=== PATIENT | female | born 1990 | race Caucasian/White ===

== ENCOUNTER 2024-07-18 10:22 | Inpatient (IN) | payer MEDICAID ==
[2024-07-18] MEDS ORDERED: Sodium Chloride 0.9% 20 ML SDV IV PRN ×2 (10:32→12:00)
[2024-07-18] MEDS ORDERED: Lidocaine 1% 50 ML MDV INJECT PRN ×2 (10:32→12:00)
[2024-07-18] MEDS ORDERED: Sodium Chloride 0.9% 2.5 ML Syringe FLUSH PRN ×2 (10:32→12:00)
[2024-07-18] MEDS ORDERED: Methylergonovine 0.2 MG/1 ML Amp IM PRN ×2 (10:32→12:00)
[2024-07-18] MEDS ORDERED: Butorphanol 2 MG/ML SDV IVPUSH PRN ×2 (10:32→12:00)
[2024-07-18] MEDS ORDERED: Water For Irrigation,Sterile 1,000 ML Container IRR PRN ×2 (10:32→12:00)
[2024-07-18] MEDS ORDERED: Ondansetron 4 MG/2 ML SDV IVPUSH PRN ×2 (10:32→12:00)
[2024-07-18] MEDS ORDERED: Terbutaline 1 MG/ML SDV SUBCUT PRN ×2 (10:32→12:00)
[2024-07-18] MEDS ORDERED: Carboprost Tromethamine 250 MCG/1 mL Vial IM PRN ×2 (10:32→12:00)
[2024-07-18] MEDS ORDERED: Sodium Chloride 0.9% 10 ML Syringe FLUSH PRN ×2 (10:32→12:00)
[2024-07-18] MEDS ORDERED: Misoprostol 200 MCG Tab PO PRN (10:32)
[2024-07-18] MEDS ORDERED: Tranexamic Acid IN NACL,ISO-OS 1,000 MG in Premix Bag 1 BAG IV PRN (10:32)
[2024-07-18] MEDS ORDERED: Oxytocin/0.9 % Sodium Chloride 30 UNIT/500 ML BAG IV SCH (10:45)
[2024-07-18] MEDS: Lactated Ringers 1,000 ML IV SCH ×2 (10:50)
[2024-07-18] MEDS: Oxytocin/0.9 % Sodium Chloride 30 UNIT/500 ML BAG IV SCH ×3 (11:05→17:45)
[2024-07-18 11:07] LABS: HEMATOCRIT 32.6 % (37.0-47.0); HEMOGLOBIN 10.3 g/dL (12.0-16.0); MEAN CORPUSCULAR HEMOGLOBIN 23.4 pg (28.0-32.0); MEAN CORPUSCULAR HGB CONC 31.6 g/dL (32.0-36.0); MEAN CORPUSCULAR VOLUME 73.9 fL (83.0-99.0); MEAN PLATELET VOLUME 10.7 fL (9.4-12.3); PLATELET COUNT,PLT 237 K/uL (150-400); RED BLOOD CELL COUNT 4.41 M/uL (4.10-5.30); WHITE BLOOD CELL COUNT,WBC 8.65 K/uL (3.9-11.3)
[2024-07-18 12:10] LABS: A/G RATIO 0.7 (0.9-1.6); ALBUMIN 2.5 g/dL (3.4-5.0); BILIRUBIN TOTAL 0.3 mg/dL (0.2-1.0); CALCIUM 8.6 mg/dL (8.5-10.1); CARBON DIOXIDE,CO2 23.6 mmol/L (21.0-32.0); CREATININE 0.8 mg/dL (0.6-1.0); EST CRCL DRUG DOSING (CG) 80.42 mL/min; POTASSIUM,K 4.1 mmol/L (3.5-5.1); PROTEIN TOTAL,TP 6.2 g/dL (6.4-8.2)
[2024-07-18] MEDS: Ropivacaine HCl/PF 400 MG in Premix Bag 1 BAG EPIDUR SCH (12:45)
[2024-07-18] MEDS ORDERED: Phenylephrine HCl In 0.9% NaCl 1 MG/10 ML Syringe IVPUSH PRN (12:53)
[2024-07-18] MEDS ORDERED: ePHEDrine 50 MG/ML SDV IVPUSH PRN (12:53)
[2024-07-18] MEDS ORDERED: Bupivacaine 0.5% 10 ML SDV INJECT ONE (12:54)
[2024-07-18] MEDS ORDERED: ePHEDrine 50 MG/ML SDV IM PRN (12:54)
[2024-07-18] MEDS ORDERED: dexmedeTOMIDine HCl 200 MCG/2 ML SDV EPIDUR SCH (13:00)
[2024-07-18] MEDS: Bupivacaine 0.5% 10 ML SDV ONE (13:09)
[2024-07-18] MEDS: Phenylephrine HCl In 0.9% NaCl 1 MG/10 ML Syringe ONE (13:10)
[2024-07-18] MEDS: Ropivacaine HCl/PF 200 ML ONE (13:10)
[2024-07-18] MEDS ORDERED: Bisacodyl 10 MG Supp RECTAL PRN (15:43)
[2024-07-18] MEDS ORDERED: Sennosides 8.6 MG Tab PO PRN (15:43)
[2024-07-18 15:59] LABS: PH,UMBILICAL ARTERIAL 7.259 (7.18-7.38); PH,UMBILICAL VENOUS 7.304 (7.25-7.45)
[2024-07-18] MEDS: Witch Hazel Medicated Pads 40/Jar TOP PRN (17:18)
[2024-07-18] MEDS: Ibuprofen 800 MG Tab PO PRN (17:18)
[2024-07-18] MEDS: Benzocaine/Menthol 20%-0.5% Spray 78 GM Cannister TOP PRN (17:18)
[2024-07-18] MEDS: Lanolin 100% Cream 7 GM Tube TOP PRN (17:19)
[2024-07-18] MEDS: Docusate Sodium 100 MG Cap PO PRN (17:19)
[2024-07-18] MEDS: Tranexamic Acid IN NACL,ISO-OS 1,000 MG in Premix Bag 1 BAG IV PRN (17:35)
[2024-07-18] MEDS: Misoprostol 200 MCG Tab PO PRN (17:38)
[2024-07-18] MEDS: Oxytocin/0.9 % Sodium Chloride 30 UNIT/500 ML BAG ONE (17:51)
[2024-07-19] MEDS: Acetaminophen 500 MG Tab PO PRN (02:04)
[2024-07-19 06:26] LABS: BASOPHILS ABSOLUTE AUTO 0.05 K/uL (0.00-0.20); BASOPHILS PERCENT AUTO 0.5 % (0.0-1.0); EOSINOPHILS ABSOLUTE AUTO 0.12 K/uL (0.00-0.45); EOSINOPHILS PERCENT AUTO 1.2 % (0.0-6.0); HEMATOCRIT 25.9 % (37.0-47.0); HEMOGLOBIN 8.2 g/dL (12.0-16.0); IMMATURE GRAN ABSOLUTE AUTO 0.04 K/uL (0.00-0.05); IMMATURE GRAN PERCENT AUTO 0.4 % (0.0-0.4); LYMPHOCYTES ABSOLUTE AUTO 2.37 K/uL (1.00-4.80); LYMPHOCYTES PERCENT AUTO 23.4 % (24.0-44.0); MEAN CORPUSCULAR HEMOGLOBIN 23.6 pg (28.0-32.0); MEAN CORPUSCULAR HGB CONC 31.7 g/dL (32.0-36.0); MEAN CORPUSCULAR VOLUME 74.6 fL (83.0-99.0); MEAN PLATELET VOLUME 10.9 fL (9.4-12.3); MONOCYTES ABSOLUTE AUTO 0.61 K/uL (0.00-0.80); NEUTROPHILS ABSOLUTE AUTO 6.92 K/uL (1.80-7.70); NEUTROPHILS PERCENT AUTO 68.5 % (41.0-71.0); PLATELET COUNT,PLT 197 K/uL (150-400); RED BLOOD CELL COUNT 3.47 M/uL (4.10-5.30); WHITE BLOOD CELL COUNT,WBC 10.11 K/uL (3.9-11.3)
[2024-07-19] MEDS: Ferrous Sulfate 325 MG Tab PO SCH (10:38)
[2024-07-20] MEDS ORDERED: Ferrous Sulfate 325 MG Tab PO SCH (09:00)
[2024-07-20] MEDS ORDERED: Iron Polysaccharides Complex 150 MG Cap PO SCH (09:00)
== END 2024-07-19 17:30 | disposition home or self-care (01) | DRG 807 ==
LOC: MW.OB 10:22 → UNDOADMOB 10:22 → MW.OB 10:32 → OBSVTOIN 15:15 → MW.OB 21:46
PROVIDERS: ADMIT Obstetrics & Gynecology; ATTEND Obstetrics & Gynecology
PROC: 10E0XZZ Delivery of Products of Conception, External Approach (ICD-10-PCS; principal; 2024-07-18)
PROC: 3E033VJ Introduction of Other Hormone into Peripheral Vein, Percutaneous Approach (ICD-10-PCS; 2024-07-18)
DX: O99.214 Obesity complicating childbirth (principal); Z37.0 Single live birth; Z3A.38 38 weeks gestation of pregnancy; O99.02 Anemia complicating childbirth; D64.9 Anemia, unspecified
CPT/HCPCS: 36415; 51702; 59025; 59409; 80053; 82803; 85025; 85027; 86592; 86850; 86900; 86901; A9270-GY; J0665; J2371; J2590; J2795; J3490; J7120